=== PATIENT | male | born 1970 | race Caucasian/White ===

== ENCOUNTER 2023-12-16 15:27 | Outpatient (OUT) | payer OTHER, SELFPAY ==
--- NOTE | 2023-12-16 15:39 | MR_ITS ---
The [address] [address] Patient Name: KANDIS ROWLAND MRN: [id number] date: 1970 Sex: M Assigned Patient Location: [facility] Current Patient Location: [facility] Accession/Order Number: [id number] Exam Date: 12/16/2023 15:50 Report Date: 12/19/2023 11:37 At the request of: JEAN-CLAUDE GONCALVES Procedure: MR lumbar spine wo con EXAM: MR lumbar spine wo con HISTORY: Lumbar Radiculopathy. Lumbar spine pain radiating into the left leg. Symptoms have worsened over the past year. No recent injury. COMPARISON: None. TECHNIQUE: Multiplanar and multisequence imaging of the lumbar spine was performed without contrast. FINDINGS: No acute fracture or spondylolisthesis is evident. The lumbar vertebral body heights are maintained. There is moderate to severe degenerative disease at L4-L5 and L5-S1 with disc height loss and endplate spurring. Modic type II fatty degenerative endplate change is present at L4-L5 on the left. No acute abnormality is identified involving visualized intrapelvic or intra-abdominal structures. The visualized aorta is normal in diameter. The upper sacrum is intact. There are no pars defects. The conus terminates at the T12 level. L5-S1: There is a broad-based disc protrusion asymmetric to the right measuring 4 mm in AP dimension in the right lateral recess. There is moderate lateral recess narrowing on the right and likely abutment of the right S1 nerve root. There is moderate right greater than left facet arthropathy and mild right foraminal narrowing without central stenosis. L4-L5: A broad-based disc protrusion is asymmetric to left more pronounced in the left lateral recess measuring 5 mm in AP dimension with an annular tear. Moderate facet arthropathy is evident. There is moderate central narrowing with the thecal sac measuring 7 mm in AP dimension. There is severe lateral recess on the left with abutment and compression of the left L5 nerve root. There is also moderate left and mild right foraminal narrowing. L3-L4: A broad-based disc protrusion is asymmetric to the right measuring 4 mm in AP dimension with mild to moderate facet arthropathy. There is mild central narrowing and moderate to severe lateral recess narrowing on the right with abutment of the right L4 nerve root. There is mild right foraminal narrowing. L2-L3: There is a right lateral recess and foraminal disc protrusion resulting in effacement of the thecal sac and lateral recess narrowing without central or foraminal stenosis. L1-L2: No focal disc herniation is evident. There is no central or foraminal stenosis. MR/MR lumbar spine wo con IMPRESSION: 1. A broad-based disc protrusion at L4-L5 is asymmetric to left resulting in moderate central narrowing and severe lateral recess on the left with abutment and compression of the left L5 nerve root. Correlation for left L5 radiculopathy would be helpful. There is also moderate left foraminal narrowing at L4-L5. 2. A broad-based disc protrusion at L3-L4 is asymmetric to the right resulting in mild central narrowing and moderate to severe lateral recess narrowing on the right with abutment of the right L4 nerve root. 3. Additional foraminal narrowing otherwise as described above. No acute fracture. Electronically authenticated by: IGNACIO GOULD Date: 12/19/2023 11:37
== END 2023-12-16 15:28 | disposition home or self-care (01) ==
LOC: RAD 15:30
PROVIDERS: PCP Family Medicine; Visit Provider Student in an Organized Health Care Education/Training Program
DX: M54.16 Radiculopathy, lumbar region (principal); M51.26 Other intervertebral disc displacement, lumbar region; S05.40XA Penetrating wound of orbit with or without foreign body, unspecified eye, initial encounter
CPT/HCPCS: 72148